=== PATIENT | male | born 1990 | race Two or more races ===

== ENCOUNTER 2017-10-17 08:44 | Emergency (ER) | payer MEDICAID, OTHER ==
[~2017-10-17] VITALS: Ht 175.3 cm; Wt 77.0 kg
[~2017-10-17 08:44] MED LIST: PHEN100C4
[2017-10-17] MEDS ORDERED: SODIUM CHLORIDE 0.9% 1,000 ML IV ONE (10:17)
[2017-10-17] MEDS ORDERED: ONDANSETRON HCL 4MG/2ML VIAL IV STA (10:17)
[2017-10-17] MEDS ORDERED: MIDAZOLAM HCL 2 MG/2 ML VIAL IV ONE (10:30)
[2017-10-17] MEDS ORDERED: LORAZEPAM 1MG TABLET PO ONE (10:30)
[2017-10-17 11:06] LABS: BASOPHILS % 0.2 % (0.0-2.0); EOSINOPHILS % 0.4 % (0.0-5.0); HEMATOCRIT. 42.8 % (42.0-52.0); HEMOGLOBIN. 14.6 g/dL (14.0-18.0); LYMPHOCYTES % 12.3 % (20.0-50.0); MEAN CORPUSCULAR HEMOGLOBIN 29.8 pg (28.0-32.0); MEAN CORPUSCULAR VOLUME 87.5 fL (80.0-94.0); MEAN PLATELET VOLUME 9.1 fl (7.4-10.4); MONOCYTES % 6.8 % (2.0-8.0); NEUTROPHILS % 80.3 % (40.0-76.0); PLATELET 158 x1000/uL (130-400); RED BLOOD CELL COUNT 4.89 mill/uL (4.7-6.1); RED CELL DISTRIBUTION WIDTH 12.6 % (11.6-14.6)
[2017-10-17 11:19] LABS: D-DIMER < 0.19 mg/L FEU (<0.50); INR 1.1; PARTIAL THROMBOPLASTIN TIME 25.6 sec (23.4-31.0); PROTHROMBIN TIME 11.5 sec (9.4-11.6)
[2017-10-17 11:24] LABS: CARBON DIOXIDE 26 mEq/L (21-32); CHLORIDE 106 mEq/L (98-107); ETHANOL BLOOD < 10 mg/dL; TROPONIN I < 0.02 ng/mL (0.00-0.04)
[2017-10-17 11:33] LABS: CLARITY URINE CLEAR (CLEAR); COLOR URINE YELLOW (YELLOW); GLUCOSE URINE NEGATIVE (NEGATIVE); KETONES URINE NEGATIVE (NEGATIVE); LEUKOCYTE ESTERASE URINE TRACE (NEGATIVE); NITRITE URINE NEGATIVE (NEGATIVE); OCCULT BLOOD URINE NEGATIVE (NEGATIVE); PROTEIN URINE NEGATIVE (NEGATIVE); SPECIFIC GRAVITY URINE 1.011 (1.005-1.030)
[2017-10-17 12:04] LABS: *AMPHETAMINES SCREEN URINE PRESUMTIVE POSITIVE (NEGATIVE); *BARBITURATES SCREEN URINE NEGATIVE (NEGATIVE); *BENZODIAZEPINES SCREEN URINE NEGATIVE (NEGATIVE); *COCAINE SCREEN URINE NEGATIVE (NEGATIVE); CANNABINOID URINE SCREEN NEGATIVE (NEGATIVE); METHADONE URINE SCREEN NEGATIVE (NEGATIVE); OPIATES URINE SCREEN NEGATIVE (NEGATIVE); PHENCYCLIDINE URINE SCREEN NEGATIVE (NEGATIVE)
[2017-10-17 12:40] VITALS: BP 126/74
== END 2017-10-17 12:56 | disposition home or self-care (01) ==
LOC: ER 10:03
DX: T43.621A Poisoning by amphetamines, accidental (unintentional), initial encounter (principal); R00.0 Tachycardia, unspecified; R00.2 Palpitations; R11.0 Nausea; F12.10 Cannabis abuse, uncomplicated; Y92.89 Other specified places as the place of occurrence of the external cause
CPT/HCPCS: 36415; 71010; 80053; 80305; 81001; 83690; 83880; 84443; 84484; 85025; 85379; 85610; 85730; 93005; 96361; 96374; 96375; 99285; G0482; J2250; J2405; J7030; Z7610

== ENCOUNTER 2017-11-05 07:27 | Emergency (ER) | payer MEDICAID ==
[~2017-11-05] VITALS: Ht 172.7 cm; Wt 77.0 kg
[2017-11-05 07:32] VITALS: BP 124/55
[2017-11-05] MEDS ORDERED: LORAZEPAM 1MG TABLET PO ONE (08:00)
== END 2017-11-05 08:28 | disposition home or self-care (01) ==
LOC: ER 07:33
DX: G47.00 Insomnia, unspecified (principal); F15.10 Other stimulant abuse, uncomplicated; F12.10 Cannabis abuse, uncomplicated; R56.9 Unspecified convulsions; Z98.890 Other specified postprocedural states
CPT/HCPCS: 99282